=== PATIENT | male | born 1990 | race Caucasian/White ===

== ENCOUNTER 2018-05-15 23:09 | Emergency (ER) | payer BC, OTHER ==
--- NOTE | 2018-05-15 23:16 | EDPHY ---
H & P Source: Patient, EMS Time Seen by Provider: 05/15/18 23:14 HPI/ROS: HPI CHIEF COMPLAINT: M1 hold, anxiety, Klonopin overdose HISTORY OF PRESENT ILLNESS: 28-year-old male, suffers from depression, anxiety presents emergency room by EMS on M1 hold by police for Klonopin overdose. Patient went to the [employer] and had a few beers with his father. He went home and had more to drink, a few shots of gin, then took 10-15 tabs of 0.5 mg Klonopin over an hour ago. He arrives to the emergency room, stable, cooperative, and in no acute distress. He is not sedated. He does state he feels tired. He took this because he has been feeling depressed, having worsening anxiety and thoughts of suicide. Denies any other co-ingestions. Past Medical History: Underlying anxiety, depression Past Surgical History: Denies recent surgical history Social History: Denies daily use of drugs alcohol tobacco. Had alcohol this evening. Family History: Noncontributory ROS REVIEW OF SYSTEMS: A comprehensive 10 point review of systems is otherwise negative aside from elements mentioned in the history of present illness. Exam Constitutional nontoxic. No acute distress, triage nursing summary reviewed, vital signs reviewed, awake/alert. Tachycardic. Eyes normal conjunctivae and sclera, EOMI, PERRLA. HENT normal inspection, atraumatic, moist mucus membranes, no epistaxis, neck supple/ no meningismus, no raccoon eyes. Respiratory clear to auscultation bilaterally, normal breath sounds, no respiratory distress, no wheezing. Cardiovascular tachycardic, regular rhythm, no murmur, no edema, distal pulses normal. Gastrointestinal soft, non-tender, no rebound, no guarding, normal bowel sounds, no distension, no pulsatile mass. Genitourinary no CVA tenderness. Musculoskeletal no midline vertebral tenderness, full range of motion, no calf swelling, no tenderness of extremities, no meningismus, good pulses, neurovascularly intact. Skin pink, warm, & dry, no rash, skin atraumatic. Neurologic awake, alert and oriented x 3, AAOx3, moves all 4 extremities equally, motor intact, sensory intact, CN II-XII intact, normal cerebellar, normal vision, normal speech. Psychiatric normal mood/affect. Heme/Lymph/Immune no lymphadenopathy. Differential Diagnosis: Includes but is not limited to in a particular order mood disorder, bipolar disorder, depression, suicidal ideation, drug overdose, benzodiazepine overdose, benzos as been having dose leading to respiratory depression Medical Decision Making: Plan for this patient full surveillance system monitor, IV establishment, EKG IV fluid bolus, watch for sedation, check Tylenol level, salicylate, alcohol level, drug screen. Patient on M1 hold once medically cleared will need mental health evaluation. Re-evaluation: 0511: Patient resting comfortably and sleeping. Medically cleared needs mental health evaluation. EKG interpretation by me on record in E-Sign system. Impression time of EKG 5:49 a.m., sinus rhythm rate of 76 early Re-heladio pattern present. Intervals appropriate. Patient performed EKG due to overdose. He does not have any chest pain shortness of breath in fact he is sleeping. 0618: Patient resting comfortably. Father at bedside in. Patient has no complaints. States he is eager to talk to mental health. He has been sleeping here. No longer intoxicated. There has been no significant sedation with Klonopin or alcohol. Signed over to Dr. Philip 7am. (Rene Anderson) Constitutional: Initial Vital Signs Temperature (C) 37.1 C 05/15/18 23:28 Heart Rate 120 H 05/15/18 23:28 Respiratory Rate 20 05/15/18 23:28 Blood Pressure 145/93 H 05/15/18 23:28 O2 Sat (%) 94 05/15/18 23:28 O2 Delivery Mode Room Air Allergies/Adverse Reactions: Sulfa (Sulfonamide Antibiotics) Allergy (Verified 05/16/18 08:08) tetracycline Allergy (Verified 05/16/18 08:08) Home Medications: Medication Instructions Recorded Klonopin 05/16/18 Medical Decision Making Other Provider: Care assumed at 6:45 a.m., this 28-year-old man is on a mental health hold for depression suicidal ideation and anxiety, plan for psychiatric evaluation this morning. 904: Patient has had his psychiatric evaluation and is the recommendation of the metal temperer Mario, and the salesforce consultant psychiatrist Dr. Justin Chicas that the hold be vacated and the patient discharged with follow-up as an outpatient. At this time he does not appear to be an acute danger to himself. (Philip,Saud S) - Data Points Laboratory Results: Laboratory Results 05/15/18 23:20 05/15/18 23:20 Medications Given: Discontinued Medications Acetaminophen (Tylenol) 1,000 mg PO EDNOW ONE Stop: 05/16/18 08:08 Last Admin: 05/16/18 08:12 Dose: 1,000 mg Sodium Chloride (Ns) 1,000 mls @ 0 mls/hr IV ONCE ONE PRN Reason: Wide Open Stop: 05/15/18 23:14 Last Admin: 05/16/18 00:01 Dose: 1,000 mls Departure - Departure Disposition: Home, Routine, Self-Care Clinical Impression: Depression, Anxiety Condition: Good Instructions: Anxiety (ED), Suicide Prevention (ED) Referrals: Omar Howard MD [Primary Care Provider] - As per Instructions
[2018-05-15 23:32] LABS: PLATELET COUNT 229 10^3/uL (150-400)
[2018-05-16] MEDS: NS 1,000 ML IV ONE (00:01)
--- NOTE | 2018-05-16 07:05 | CPEKG ---
Test Reason : OPEN Blood Pressure : / mmHG Vent. Rate : 111 BPM Atrial Rate : 111 BPM P-R Int : 144 ms QRS Dur : 101 ms QT Int : 318 ms P-R-T Axes : 039 023 031 degrees QTc Int : 432 ms Sinus tachycardia Probable anteroseptal infarct, recent Confirmed by Rene Anderson ([id number]) on 05/16/2018 7:05:11 AM Referred By: Confirmed By:Rene Anderson
--- NOTE | 2018-05-16 07:05 | CPEKG ---
Test Reason : OPEN Blood Pressure : / mmHG Vent. Rate : 076 BPM Atrial Rate : 074 BPM P-R Int : 144 ms QRS Dur : 107 ms QT Int : 363 ms P-R-T Axes : 057 034 032 degrees QTc Int : [address] elev, probable normal early repol pattern Confirmed by Rene Anderson ([id number]) on 05/16/2018 7:05:13 AM Referred By: Confirmed By:Rene Anderson
[2018-05-16] MEDS: ACETAMINOPHEN 500 MG TAB PO ONE (08:12)
[2018-05-16 09:34] VITALS: BP 151/90
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
--- NOTE | 2018-05-16 10:23 | ASMTTCLDSP ---
TLC Discharge Disposition Disposition: Answers: Discharge If Answers: Yes DISCHARGED: Patient/family given suicide hotline info & [facility] brochure? Disposition Notes: Notes: Pt stated commitment or ability to keep self safe, denied thoughts of self harm or harm to others. Pt expressed a desire to f/u with his next psychiatrist appointment on May 20 at 11:30 a.m. Pt was given local hotline information and [facility] brochure After an Attempt. Discharge Concerns/Recommendations: Notes: In consultation with [facility] ED physician, Saud Philip MD, Dr. Philip concurred that pt does not appear to meet 27-65 criteria requiring psychiatric hospitalization as pt does not appear to be an imminent risk of harm to self/others/gravely disabled due to a mental illness condition. Dr. Philip provided verbal order read back vacating M1 hold at 0900 hrs. Was patient given the Answers: Not applicable Inpatient Behavioral Health Prohibited Belongings List while in the ED? Psychiatrist vacating M1 Saud Philip MD Hold: Date and time M1 hold 05/16/2018 09:00 AM vacated (time format is hh:mm): Type of Hold: Answers: M1/72-hour Hold Hold initiated by: Answers: Police Date Signed: 05/16/2018 10:23 AM Electronically Signed By:Mario Veras
== END 2018-05-16 09:35 | disposition home or self-care (01) ==
LOC: EDUNIT#
DX: F41.9 Anxiety disorder, unspecified (principal); F32.9 Major depressive disorder, single episode, unspecified; T42.4X2A Poisoning by benzodiazepines, intentional self-harm, initial encounter
CPT/HCPCS: 80305; G0480